=== PATIENT | female | born 1970 | race African-American/Black ===

== ENCOUNTER 2017-12-03 06:16 | Emergency (ER) | payer SELFPAY ==
[~2017-12-03] VITALS: Ht 165.1 cm; Wt 79.5 kg
[2017-12-03 06:49] LABS: HEMATOCRIT 41.2 % (36.0-46.0); HEMOGLOBIN 14.1 G/DL (11.9-15.5); MCHC 34.2 G/DL (30.0-36.0); MCV 93.4 FL (83-99); PLATELET COUNT 277 K/uL (156-360); RBC DIS.WIDTH-CV 12.5 % (11.8-14.6); RBC DIS.WIDTH-SD 43.3 % (39-53); RED BLOOD COUNT 4.41 M/uL (3.80-5.20); WHITE BLOOD COUNT 8.6 K/uL (4.1-10.2)
[2017-12-03 07:20] LABS: CHLORIDE 106 MEQ/L (99-109); CREATININE 0.7 MG/DL (0.6-1.3); GFR ESTIMATE (CALCULATED) > 59 mL/min/; GLUCOSE 111 mg/dL (70-99); POTASSIUM 3.1 MEQ/L (3.7-5.4); SODIUM 139 MEQ/L (136-147); UREA NITROGEN (BUN) 13 mg/dL (9-23)
[2017-12-03] MEDS ORDERED: PROVENTIL HFA6.7 GM IH (08:31)
[2017-12-03] MEDS ORDERED: ZITHROMAX Z-PA250 MG PO (08:31)
[2017-12-03 08:57] VITALS: BP 117/76
== END 2017-12-03 08:58 | disposition home or self-care (01) ==
LOC: EME 06:16
DX: J20.9 Acute bronchitis, unspecified (principal); F17.200 Nicotine dependence, unspecified, uncomplicated
CPT/HCPCS: 71046; 80048; 85027; 93005; 94640; 99281; 99284